=== PATIENT | male | born 1955 | race Caucasian/White ===

== ENCOUNTER 2018-01-10 22:21 | Emergency (ER) | payer OTHER ==
[~2018-01-10] VITALS: Ht 185.4 cm; Wt 85.9 kg
[2018-01-11] MEDS ORDERED: ACETAZOLAMIDE500 MG PO (00:49)
[2018-01-11] MEDS ORDERED: COSOPT EYE DROP10 ML LEFT EYE (00:49)
[2018-01-11] MEDS ORDERED: ALPHAGAN P100 DROP/5 LEFT EYE (00:49)
[2018-01-11 01:46] VITALS: BP 124/88
== END 2018-01-11 01:47 | disposition home or self-care (01) ==
LOC: EME 22:21
DX: H57.12 Ocular pain, left eye (principal); Z98.890 Other specified postprocedural states
CPT/HCPCS: 99281; 99284; J0780; J2405; J2765